=== PATIENT | male | born 1955 | race Hispanic/Latino ===

== ENCOUNTER 2016-06-28 06:23 | Emergency (ER) | payer BC ==
[2016-06-28 06:39] VITALS: BMI 33.7
[2016-06-28 06:46] VITALS: TEMP 98.5; O2SAT 95
[2016-06-28] MEDS ORDERED: Morphine 4 mg/ml ISec IM STA (07:06)
--- NOTE | 2016-06-28 07:11 | ED PDOC ---
Arrival/HPI - General Chief Complaint: Lower Extremity Problem/Injury Time Seen by Provider: 06/28/16 07:02 Historian: Patient - History of Present Illness Narrative History of Present Illness (Text): 06/28/16 07:08 Uziel Whitmore is a 60 year old male, with a history of hypercholesterolemia, hypertension, degenerative disc disease, and sciatica, presents to the emergency department complaining of worsening right lower back pain radiating down to the right leg for past week. Reports that symptoms are similar to previous sciatica symptoms which he experienced 7 years ago. Reports that back pain presented 1 week ago, but has worsened over past 2 days. Notes pain is alleviated while lying flat and worsened with movement. Took Motrin and muscle relaxant yesterday night for minimal relief. Denies fever, chills, headache, dizziness, chest pain, difficulty breathing, nausea, vomiting, diarrhea, numbness/weakness to extremity, saddle anesthesia, urinary symptoms or any other complaints at this time. no saddle anesthesia, urinary changes. Time/Duration: 1 week Symptom Onset: Gradual Symptom Course: Worsening Severity Level: Mild Activities at Onset: Light Past Medical History - Provider Review Nursing Documentation Reviewed: Yes - Cardiac Hx Hypertension: Yes - Pulmonary Hx Respiratory Disorders: No - Neurological Hx Neurological Disorder: No - HEENT Hx HEENT Disorder: No - Renal Hx Renal Disorder: No - Endocrine/Metabolic Hx Endocrine Disorders: No - Hematological/Oncological Hx Blood Disorders: No - Integumentary Hx Dermatological Disorder: No - Musculoskeletal/Rheumatological Hx Musculoskeletal Disorders: No - Gastrointestinal Hx Gastrointestinal Disorders: No - Genitourinary/Gynecological Hx Genitourinary Disorders: No - Psychiatric Hx Psychophysiologic Disorder: No Hx Substance Use: No - Anesthesia Hx Anesthesia: No Family/Social History - Physician Review Nursing Documentation Reviewed: Yes Family/Social History: No Known Family HX Smoking Status: Never Smoked Hx Alcohol Use: No Hx Substance Use: No Allergies/Home Meds Allergies/Adverse Reactions: Allergies codeine Allergy (Verified 06/28/16 06:40) RASH Home Medications: Home Meds Medication Instructions Recorded Confirmed Ezetimibe [Zetia] 10 mg PO DAILY 06/28/16 06/28/16 Finasteride [Proscar] 5 mg PO DAILY 06/28/16 06/28/16 Pantoprazole Sodium [Protonix] 40 mg PO DAILY 06/28/16 06/28/16 Rosuvastatin Calcium [Crestor] 10 mg PO DAILY 06/28/16 06/28/16 Valsartan [Diovan] 160 mg PO DAILY 06/28/16 06/28/16 Review of Systems - Physician Review All systems were reviewed & negative as marked: Yes - Review of Systems Constitutional: Normal. absent: Fatigue, Fevers Respiratory: Normal. absent: SOB, Cough, Sputum Cardiovascular: Normal. absent: Chest Pain Gastrointestinal: Normal. absent: Abdominal Pain, Diarrhea, Nausea, Vomiting Musculoskeletal: Back Pain (right back pain radiating to right leg. ) Psychiatric: Normal Physical Exam Vital Signs Reviewed: Yes Vital Signs Temp Pulse Resp BP Pulse Ox 06/28/16 08:58 68 17 138/87 95 06/28/16 06:46 98.5 F 72 14 151/81 H 95 Temperature: Afebrile Blood Pressure: Normal Pulse: Regular Respiratory Rate: Normal Appearance: Positive for: Well-Appearing, Non-Toxic, Comfortable Pain Distress: None Mental Status: Positive for: Alert and Oriented X 3 - Systems Exam Head: Present: Atraumatic, Normocephalic Pupils: Present: PERRL Conjunctiva: Present: Normal Respiratory/Chest: Present: Clear to Auscultation, Good Air Exchange. No: Respiratory Distress, Accessory Muscle Use Cardiovascular: Present: Regular Rate and Rhythm, Normal S1, S2. No: Murmurs Abdomen: Present: Normal Bowel Sounds. No: Tenderness, Distention, Peritoneal Signs, Rebound, Guarding Back: Present: Paraspinal Tenderness (right lumbar paraspinal tenderness ), Pain with Leg Raise Upper Extremity: Present: Normal Inspection. No: Cyanosis, Edema Lower Extremity: Present: Normal Inspection, NORMAL PULSES, Normal ROM, Neurovascularly Intact, Capillary Refill < 2 s. No: Edema, CALF TENDERNESS Neurological: Present: GCS=15, CN II-XII Intact, Speech Normal Skin: Present: Warm, Dry, Normal Color. No: Rashes Psychiatric: Present: Alert, Oriented x 3, Normal Insight, Normal Concentration Medical Decision Making ED Course and Treatment: 06/28/16 07:18 Impression: A 60 year old male who presents to emergency department for worsening right lower back pain radiating to right leg for past week. no saddle anesthesia, urinary changes, cauda equina unlikely. pt describes pain as "Worseniing chronic back pain" no h/o of new trauma. no indication for imaging. Plan: -- Flexeril -- Morphine -- Reassess and disposition Progress Notes: 06/28/16 07:30 Patient is stable for discharge. Will discharge patient home on Cyclobenzaprine , Lidoderm and Percocet. Advised to present back to ed for worsening symptoms and follow up with PMD within few days. no clinical concern for cauda equina, epidural abscess. as pt with known ho of sciatica, no saddle anesthesia, no urinary changes, vertebral ttp. pt noted to be ambulatory in triage and drove himself to er. - Medication Orders Current Medication Orders: Discontinued Medications Cyclobenzaprine HCl (Flexeril) 10 mg PO STAT STA Stop: 06/28/16 07:07 Last Admin: 06/28/16 07:16 Dose: 10 MG Ketorolac Tromethamine (Toradol) 30 mg IM STAT STA Stop: 06/28/16 08:03 Last Admin: 06/28/16 08:03 Dose: 30 MG IM Administration Charges Document 06/28/16 08:03 SF (Rec: 06/28/16 08:03 SF [id number]) Injection Site MAR Injection Site Right Deltoid Charges for Administration # of IM Administrations 1 Ketorolac Tromethamine (Toradol) Confirm Administered Dose 30 mg .ROUTE .STK- MED ONE Stop: 06/28/16 08:04 Last Admin: 06/28/16 08:51 Dose: Lidocaine (Lidoderm) 1 ea TD STAT STA Stop: 06/28/16 08:27 Last Admin: 06/28/16 08:52 Dose: 1 EA MAR Transdermal Patch Site Document 06/28/16 08:52 SF (Rec: 06/28/16 08:53 SF [id number]) Transdermal Patch Site Transdermal Patch Site Right Lower Back Morphine Sulfate (Morphine) 4 mg IM STAT STA Stop: 06/28/16 07:07 Last Admin: 06/28/16 07:16 Dose: 4 MG MAR Pain Assessment Document 06/28/16 07:16 SF (Rec: 06/28/16 07:16 SF [id number]) Pain Reassessment Is this a pain reassessment? No Sleep Is patient sleeping during reassessment? No Presence of Pain Presence of Pain Yes IM Administration Charges Document 06/28/16 07:16 SF (Rec: 06/28/16 07:16 [id number]) Injection Site MAR Injection Site Left Deltoid Charges for Administration # of IM Administrations 1 - Scribe Statement The provider has reviewed the documentation as recorded by the Kiera Wei Provider Attestation: All medical record entries made by the Crowibe were at my direction and personally dictated by me. I have reviewed the chart and agree that the record accurately reflects my personal performance of the history, physical exam, medical decision making, and the department course for this patient. I have also personally directed, reviewed, and agree with the discharge instructions and disposition. Disposition/Present on Arrival - Present on Arrival Any Indicators Present on Arrival: No History of DVT/PE: No History of Uncontrolled Diabetes: No Urinary Catheter: No History of Decub. Ulcer: No History Surgical Site Infection Following: None - Disposition Have Diagnosis and Disposition been Completed?: Yes Diagnosis: Back pain Disposition: HOME/ ROUTINE Disposition Time: 07:00 Condition: STABLE Discharge Instructions (ExitCare): Acute Low Back Pain (ED) Additional Instructions: please follow up with your doctor. return to er with worseing symptoms or concerns. Prescriptions: Cyclobenzaprine [Cyclobenzaprine HCl] 10 mg PO TID PRN #21 tab PRN Reason: Muscle Spasm Lidocaine 5% [Lidoderm] 1 ea TD BID PRN #5 patch PRN Reason: Pain, Mild (1-3) oxyCODONE/Acetaminophen [Percocet 5/325 mg Tab] 1 ea PO Q6 PRN #10 tab PRN Reason: Pain, Severe (8-10) Referrals: Finesse Ball MD [Staff Provider] - Follow up with primary
[2016-06-28] MEDS ORDERED: Lidocaine 5% Patch TD STA (08:26)
[2016-06-28 08:59] VITALS: BP 138/87; PULSE 68; RESP 17
== END 2016-06-28 09:01 | disposition home or self-care (01) ==
LOC: ED 06:23
DX: M54.5 Low back pain (principal); I10 Essential (primary) hypertension; E78.00 Pure hypercholesterolemia, unspecified
CPT/HCPCS: 96372; 99285; J1885; J2270